=== PATIENT | male | born 1990 | race Caucasian/White ===

== ENCOUNTER 2020-05-21 17:54 | Emergency (ER) | payer OTHER ==
[~2020-05-21] VITALS: Ht 182.9 cm; Wt 117.9 kg
[2020-05-21] MEDS ORDERED: NORCO 5-325 TA1 EAC2 PO (19:19)
[2020-05-21] MEDS ORDERED: IBUPROFEN 600600 M1 PO (19:19)
[2020-05-21 19:44] VITALS: BP 129/51
== END 2020-05-21 19:44 | disposition home or self-care (01) ==
LOC: ER 17:54
DX: S83.92XA Sprain of unspecified site of left knee, initial encounter (principal); M25.462 Effusion, left knee; W17.89XA Other fall from one level to another, initial encounter; Y93.89 Activity, other specified; Y92.89 Other specified places as the place of occurrence of the external cause; Y99.8 Other external cause status